=== PATIENT | female | born 1975 | race Caucasian/White ===

== ENCOUNTER 2016-06-16 11:53 | Emergency (ER) | payer MEDICAID, OTHER, SELFPAY ==
[2016-06-16] MEDS ORDERED: IBUPROFEN 600 MG TAB As Ordered ONE (13:07)
[2016-06-16] MEDS ORDERED: PROMETHAZINE INJ 25 MG/ML VIAL (J2550) As Ordered ONE (13:07)
--- NOTE | 2016-06-16 13:46 | REP ---
CHEST X-RAY: Two views. HISTORY: Shortness of breath. Comparison chest x-ray February 25, 2016. Comparison chest CT study is from May 18 2016. FINDINGS: There is mild biapical pleuroparenchymal stranding or scarring as before. The lungs are otherwise well inflated and clear. Pleural angles are sharp. Heart is not enlarged. Pulmonary vasculature is not increased. There is a mild levoconvex curvature in the thoracic spine. IMPRESSION: No active disease. Signed by Abhishek Ndiaye MD 06/16/2016 02:25 P
--- NOTE | 2016-06-16 14:05 | REP ---
Right upper quadrant sonography: History: Biliary colic. Comparison study: Comparison CT images from chest CT study dated May 18, 2016 done at [facility]. Findings: Scanning through the right upper quadrant of the abdomen demonstrates a normal sized, thin-walled gallbladder without evidence of stone or polyp. Common bile duct is normal measuring 0.2 cm in greatest diameter. No focal liver lesion is seen. Liver size is normal. No pancreatic abnormality is observed. No right renal abnormality is seen. There is no evidence of ascites. The right kidney measures 12.0 x 5.0 x 3.7 cm. Impression: Negative right upper quadrant sonography. Signed by Abhishek Ndiaye MD 06/16/2016 01:56 P
[2016-06-16 14:42] LABS: BASO % 0.1 % (0.0-1.0); EOS % 0.4 % (0.0-3.0); LARGE UNSTAINED CELL # 0.1 K/mm3 (0.0-0.4); LARGE UNSTAINED CELL % 0.5 % (0.0-4.0); LYMPH # 1.2 K/mm3 (1.5-4.5); LYMPH % 13.2 % (24.0-44.0); MEAN CORPUSCULAR HGB CONC 34.1 g/dl (32.0-36.5); MEAN CORPUSCULAR VOLUME 88.1 fl (80.0-96.0); MONO # 0.2 K/mm3 (0.0-0.8); MONO % 2.7 % (0.0-5.0); NEUTROPHILS # 7.3 K/mm3 (1.8-7.7); NEUTROPHILS % 83.1 % (36.0-66.0); PLATELET COUNT, AUTOMATED 195 k/mm3 (150-450); WHITE BLOOD COUNT 8.8 K/mm3 (4.0-10.0)
[2016-06-16 15:04] LABS: ALBUMIN 4.3 GM/DL (3.2-5.2); ALBUMIN/GLOBULIN RATIO 1.16 (1.00-1.93); ALKALINE PHOSPHATASE 62 U/L (45-117); ALT/SGPT 15 U/L (12-78); ANION GAP 11 MEQ/L (8-16); AST/SGOT 9 U/L (15-37); BILIRUBIN,DIRECT 0.1 MG/DL (0.0-0.2); BILIRUBIN,TOTAL 0.6 MG/DL (0.2-1.0); BLOOD UREA NITROGEN 18 MG/DL (7-18); CALCIUM LEVEL 9.3 MG/DL (8.5-10.1); CARBON DIOXIDE LEVEL 24 MEQ/L (21-32); CHLORIDE LEVEL 105 MEQ/L (98-107); CREATININE FOR GFR 0.64 MG/DL (0.55-1.02); GLOMERULAR FILTRATION RATE > 60.0 (>58); GLUCOSE, FASTING 129 MG/DL (70-105); POTASSIUM SERUM 3.3 MEQ/L (3.5-5.1); SODIUM LEVEL 140 MEQ/L (136-145)
--- NOTE | 2016-06-16 16:50 | EDDOCDS ---
Nurse's Notes [facility] Name: Rose Kuo Age: 40 yrs Sex: Female : 1975 Arrival Date: 06/16/2016 Time: 11:53 Bed 9 Private MD: Jacky Wills Diagnosis: Upper abdominal pain, unspecified;Nausea and vomiting Presentation: 06/16 12:05 Presenting complaint: Patient states: chest pain a couple of weeks on and off, non stop [facility] vomiting started last night about 8pm. Feeling low appetite and nausea for a few weeks, losing weight for past year and a half, get pain across upper abdomen toward right side after I eat. Adult Sepsis Screening: The patient does not have new or worsening altered mentation. Patient's respiratory rate is less than 22. Systolic blood pressure is greater than 100. Patient has a qSOFA score of 0- Negative Sepsis Screen. Suicide/Homicide risk assessment- the patient denies having any suicidal and/or homicidal ideations and does not present with any other emotional, behavioral or mental health complaints. Status: Patient is not a business services representative or dependent. Transition of care: patient was not received from another setting of care. Care prior to arrival: See EMS report. Medications administered prior to arrival: Zofran Saline lock initiated. 12:05 Acuity: NEHA Level 3 [facility] 12:05 Method Of Arrival: Ambulance [facility] Triage Assessment: 12:12 General: Appears in no apparent distress, ill, Behavior is flat. Pain: Location: right [facility] upper quadrant and left upper quadrant Pain currently is 3 out of 10 on a pain scale. HIV screening NA for this visit Offered previously. Neurological: Level of Consciousness is awake, alert, Oriented to person, place, time. Respiratory: Airway is patent Respiratory effort is even, unlabored, Respiratory pattern is regular, symmetrical. GI: Reports vomiting. Derm: Skin is pink, warm & dry. 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 Depakote 500 mg Oral TbEC 2 tabs nightly 2. Tylenol 500 mg Oral 2 tabs as needed (Last dose: 06/15/2016) 3. Botox Injections every three months (Last dose: 05/14/2016) - PMHx: Migraine Headaches; Anxiety; Depression; Lung nodules, eval due November 2016; - PSHx: Hysterectomy; EGD; Colonoscopy; Left Breast biopsy; - Social history: Smoking status: Patient uses tobacco products, heavy tobacco smoker. No barriers to communication noted. - Family history: Not pertinent. - : The pt / caregiver states he / she is not on anticoagulants. Home medication list is obtained from the patient. - Exposure Risk Screening:: None identified. Screenin:30 Screening information is obtained from the patient. Fall risk: No risks identified. [facility] Assistance ADL's: requires no assistance with activities of daily living. Abuse/DV Screen: The patient / caregiver reports he/she is: not in a situation that causes fear, pain or injury. Nutritional screening: No deficits noted. Advance Directives: There is no active DNR order. home support is adequate. Assessment: 00:30 General: Appears ill, Behavior is fussy. Pain: Location: abdomen Pain currently is 5 cjh out of 10 on a pain scale. Neurological: Level of Consciousness is awake, alert, Oriented to person, place, time. Cardiovascular: Rhythm is sinus arrythmia. Respiratory: Airway is patent Respiratory effort is even, unlabored, Respiratory pattern is regular, symmetrical. GI: Bowel sounds diminished in right upper quadrant, left upper quadrant, right lower quadrant and left lower quadrant Abd is soft X 4 quads Abd is tender to palpation in right upper quadrant Reports vomiting. GI: Abdomen is non- distended. 13:10 General: transported to [facility] via tech, then ultrasound. [facility] 14:25 General: returned from US, reports nausea, no further vomiting. Lab draws completed and [facility] medications administered, at bedside. 15:41 General: resting quietly, appears comfortable, at bedside. [facility] 16:48 General: Appears in no apparent distress, comfortable, Behavior is cooperative. ead Neurological: Level of Consciousness is awake, alert, Oriented to person, place, time. Derm: Skin is pink, warm & dry. Vital Signs: 12:04 BP 145 / 65; Pulse 60; Resp 18; Temp 100.1(TE); Pulse Ox 100% ; cmb 12:16 Weight 51.71 kg (R); Height 5 ft. 4 in. (162.56 cm); Pain 4/10; cmb 16:01 BP 93 / 51; Pulse 69; Resp 18; Pulse Ox 99% ; Pain 3/10; cmb 16:04 Temp 98.1(O); cmb 16:32 BP 133 / 73 (auto/); ead 16:32 Pulse 76 MON; ead 16:44 Pulse 76 MON; Resp 14; Pulse Ox 98% ; Pain 0/10; ead 12:16 Body Mass Index 19.57 (51.71 kg, 162.56 cm) cmb Vitals: 12:04 Log In Time N/A - ambulance arrival. cmb ED Course: 00:30 The patient / caregiver is instructed regarding the plan of care and ED course. cjh 00:30 Maintain field IV. Good blood return noted. Site clean & dry. Gauge & site: 18, right cj AC. 11:54 Patient visited by Lorri Hernandez, Grinder Dresser. lbd 11:54 Patient moved to Waiting lbd 11:55 Jacky Wills is Private Physician. lbd 11:55 Patient moved to 9 lbd 12:05 Patient visited by Helen Lagos. cmb 12:07 Triage Initiated [facility] 12:16 Patient visited by Helen Lagos. cmb 12:16 Pt greeted and oriented to ED. Patient advised of names of staff involved in care, cmb location of call alexandre, wait times and NPO status. Accompanied by Family Member, Patient has correct armband on for positive identification. Placed in gown. Bed in low position. Call light in reach. Side rails up X2. impregnator helper on. Pulse ox on. NIBP on. 12:16 EKG done. (by ED staff). Reviewed by Darrin Turner MD. cmb 12:48 Zenon Gresham MD is Attending Physician. br1 12:57 Patient visited by Zenon Gresham MD. br1 14:03 Patient visited by Helen Lagos. cmb 14:18 Chest, 2 View (pa\E\lat) Returned. EDMS 14:18 Ultrasound Abd Limited Returned. EDMS 14:28 -Influenza A&B Rapid Antigen - Nose Sent. cjh 14:28 Troponin Sent. cjh 14:29 CBC with Diff Sent. cjh 14:39 VALPROIC ACID (DEPAKOTE) Sent. cjh 14:39 BASIC METABOLIC PROFILE Sent. cjh 14:39 LIVER PROFILE Sent. cjh 14:39 LIPASE Sent. cjh 14:41 Patient visited by Consuelo Goddard RN. cj 15:52 Patient visited by Consuelo Goddard RN. [facility] 15:54 Patient visited by Zenon Gresham MD. br1 16:02 Patient visited by Helen Lagos. cmb 16:03 [facility] Payment Agreement was scanned into [employer] and attached to record. zo 16:04 Patient visited by Helen Lagos. cmb 16:24 Patient visited by Zenon Gresham MD. br1 16:25 Jacky Wills is Referral Physician. br1 16:27 Patient visited by Helen Lagos. cmb 16:48 Discontinued IV intact, bleeding controlled, pressure dressing applied, No ead redness/swelling at site. No procedures done that require assistance. Administered Medications: 14:28 Drug: Ibuprofen 600 mg [ibuprofen 600 mg tablet (1 tabs)] Route: PO; [facility] 14:28 Drug: NS 0.9% 1000 ml Route: IV; Rate: bolus; Site: left antecubital; [facility] 14:28 Drug: Promethazine 25 mg [promethazine 25 mg/mL injection solution (1 mL)] Route: IVP; [facility] Site: left antecubital; Order Results: Lab Order: CBC with Diff; SPEC'M 06/16/16 14:26 Test: WHITE BLOOD COUNT; Value: 8.8; Range: 4.0-10.0; Units: K/mm3; Status: F Test: RED BLOOD COUNT; Value: 4.69; Range: 4.00-5.40; Units: M/mm3; Status: F Test: HEMOGLOBIN; Value: 14.1; Range: 12.0-16.0; Units: g/dl; Status: F Test: HEMATOCRIT; Value: 41.3; Range: 36.0-47.0; Units: %; Status: F Test: MEAN CORPUSCULAR VOLUME; Value: 88.1; Range: 80.0-96.0; Units: fl; Status: F Test: MEAN CORPUSCULAR HEMOGLOBIN; Value: 30.0; Range: 27.0-33.0; Units: pg; Status: F Test: MEAN CORPUSCULAR HGB CONC; Value: 34.1; Range: 32.0-36.5; Units: g/dl; Status: F Test: RED CELL DISTRIBUTION WIDTH; Value: 12.0; Range: 11.5-14.5; Units: %; Status: F Test: PLATELET COUNT, AUTOMATED; Value: 195; Range: 150-450; Units: k/mm3; Status: F Test: NEUTROPHILS %; Value: 83.1; Range: 36.0-66.0; Abnormal: Above high normal; Units: %; Status: F Test: LYMPH %; Value: 13.2; Range: 24.0-44.0; Abnormal: Below low normal; Units: %; Status: F Test: MONO %; Value: 2.7; Range: 0.0-5.0; Units: %; Status: F Test: EOS %; Value: 0.4; Range: 0.0-3.0; Units: %; Status: F Test: BASO %; Value: 0.1; Range: 0.0-1.0; Units: %; Status: F Test: LARGE UNSTAINED CELL %; Value: 0.5; Range: 0.0-4.0; Units: %; Status: F Test: NEUTROPHILS #; Value: 7.3; Range: 1.8-7.7; Units: K/mm3; Status: F Test: LYMPH #; Value: 1.2; Range: 1.5-4.5; Abnormal: Below low normal; Units: K/mm3; Status: F Test: MONO #; Value: 0.2; Range: 0.0-0.8; Units: K/mm3; Status: F Test: EOS #; Value: 0.0; Range: 0.0-0.50; Units: K/mm3; Status: F Test: BASO #; Value: 0.0; Range: 0.0-0.2; Units: K/mm3; Status: F Test: LARGE UNSTAINED CELL #; Value: 0.1; Range: 0.0-0.4; Units: K/mm3; Status: F Lab Order: Troponin; SPEC'M 06/16/16 14:26 Test: TROPONIN I; Value: < 0.02; Range: < 0.10; Units: NG/ML; Status: F Test Note: ; Troponin I Reference Interval for [facility] LOCI: 99th Percentile= 0.00-0.045 ng/ml Risk Stratification: <= 0.10 ng/ml Decreased Risk for Adverse Clinical Events. 0.10-1.50 ng/ml Increased Risk for Adverse Clinical Events. Evaluation of additional criterion and/or repeat testing in 2-6 hours is suggested to rule out myocardial damage. >= 1.50 ng/ml Indicative of Myocardial Injury. Lab Order: -Influenza A&B Rapid Antigen - Nose; SPEC'M 06/16/16 14:26 Test: INFLUENZA A RAPID SCR by ICA; Value: INFLUENZA A RESULTS NEGATIVE; Status: F Test: INFLUENZA A RAPID SCR by ICA; Value: Comments:; Status: F Test: INFLUENZA B RAPID SCR by ICA; Value: INFLUENZA B RESULTS NEGATIVE; Status: F Test Note: ; The Influenza test is a direct rapid immunoassay for the qualitative detection of Influenza viral antigen. Cell culture (Viral Culture) testing should be considered to confirm NEGATIVE results and to assist in detecting other viruses that can provide similar clinical symptoms. Please contact the lab within 24 hours [phone]) if confirmatory testing is desired. Lab Order: LIPASE; SPEC'M 06/16/16 14:26 Test: LIPASE; Value: 66; Range: 73-393; Abnormal: Below low normal; Units: U/L; Status: F Lab Order: LIVER PROFILE; SPEC'M 06/16/16 14:26 Test: AST/SGOT; Value: 9; Range: 15-37; Abnormal: Below low normal; Units: U/L; Status: F Test: ALT/SGPT; Value: 15; Range: 12-78; Units: U/L; Status: F Test: ALKALINE PHOSPHATASE; Value: 62; Range: 45-117; Units: U/L; Status: F Test: BILIRUBIN,TOTAL; Value: 0.6; Range: 0.2-1.0; Units: MG/DL; Status: F Test: BILIRUBIN,DIRECT; Value: 0.1; Range: 0.0-0.2; Units: MG/DL; Status: F Test: TOTAL PROTEIN; Value: 8.0; Range: 6.4-8.2; Units: GM/DL; Status: F Test: ALBUMIN; Value: 4.3; Range: 3.2-5.2; Units: GM/DL; Status: F Test: ALBUMIN/GLOBULIN RATIO; Value: 1.16; Range: 1.00-1.93; Status: F Lab Order: BASIC METABOLIC PROFILE; SPEC'06/16/16 14:26 Test: GLUCOSE, FASTING; Value: 129; Range: 70-105; Abnormal: Above high normal; Units: MG/DL; Status: F Test: BLOOD UREA NITROGEN; Value: 18; Range: 7-18; Units: MG/DL; Status: F Test: CREATININE FOR GFR; Value: 0.64; Range: 0.55-1.02; Units: MG/DL; Status: F Test: GLOMERULAR FILTRATION RATE; Value: > 60.0; Range: >58; Status: F Test: SODIUM LEVEL; Value: 140; Range: 136-145; Units: MEQ/L; Status: F Test: POTASSIUM SERUM; Value: 3.3; Range: 3.5-5.1; Abnormal: Below low normal; Units: MEQ/L; Status: F Test: CHLORIDE LEVEL; Value: 105; Range: 98-107; Units: MEQ/L; Status: F Test: CARBON DIOXIDE LEVEL; Value: 24; Range: 21-32; Units: MEQ/L; Status: F Test: ANION GAP; Value: 11; Range: 8-16; Units: MEQ/L; Status: F Test: CALCIUM LEVEL; Value: 9.3; Range: 8.5-10.1; Units: MG/DL; Status: F Test Note: ; Units are mL/min/1.73 m2 Chronic Kidney Disease Staging per NKF: Stage I & II GFR >=60 Normal to Mildly Decreased Stage III GFR 30-59 Moderately Decreased Stage IV GFR 15-29 Severely Decreased Stage V GFR <15 Very Little GFR Left ESRD GFR <15 on LOADING AND UNLOADING SUPERVISOR Lab Order: VALPROIC ACID (DEPAKOTE); SPEC'M 06/16/16 14:26 Test: VALPROIC ACID (DEPAKOTE); Value: 65.7; Range: 50.0-100.0; Units: UG/ML; Status: F Radiology Order: Chest, 2 View (pa\E\lat) Test: Chest, 2 View (pa\E\lat) REASON FOR EXAMINATION: Shortness of Breath; CHEST X-RAY: Two views.; ; HISTORY: Shortness of breath.; ; Comparison chest x-ray February 25, 2016. Comparison chest CT study is from; May 18 2016.; ; FINDINGS: There is mild biapical pleuroparenchymal stranding or scarring as; before. The lungs are otherwise well inflated and clear. Pleural angles are; sharp. Heart is not enlarged. Pulmonary vasculature is not increased. There is; a mild levoconvex curvature in the thoracic spine.; ; IMPRESSION: No active disease.; ; ; Signed by; Abhishek Ndiaye MD 06/16/2016 02:25 P; Radiology Order: Ultrasound Abd Limited Test: Ultrasound Abd Limited REASON FOR EXAMINATION: Biliary Colic; Right upper quadrant sonography:; ; History: Biliary colic.; ; Comparison study: Comparison CT images from chest CT study dated May 18, 2016; done at [facility].; ; Findings: Scanning through the right upper quadrant of the abdomen demonstrates a; normal sized, thin-walled gallbladder without evidence of stone or polyp. Common; bile duct is normal measuring 0.2 cm in greatest diameter. No focal liver lesion; is seen. Liver size is normal. No pancreatic abnormality is observed. No right; renal abnormality is seen. There is no evidence of ascites. The right kidney; measures 12.0 x 5.0 x 3.7 cm.; ; Impression:; ; Negative right upper quadrant sonography.; ; ; Signed by; Abhishek Ndiaye MD 06/16/2016 01:56 P; Outcome: 00:30 Ultrasound Study completed. [facility] 16:27 Discharge ordered by Provider. br1 16:49 Discharge Assessment: Patient awake and alert. obeys commands, Oriented to person, ead place and time. patient administered narcotics - no. The following High Risk Discharge criteria are identified: None. Discharged to home ambulatory, with significant other. Condition: improved. Discharge instructions given to patient, significant other, Instructed on discharge instructions, follow up and referral plans. medication usage, no driving heavy equipment, no drinking with medication, Demonstrated understanding of instructions, medications, Pt was receptive of discharge instructions/ teaching. Prescriptions given X 1. Property sent home with patient. 16:49 Patient left the ED. ead Signatures: Dispatcher [employer] EDMS Lorri Hernandez, Grinder Dresser Unit lbd Jaswant Mansfield Brian, MD MD br1 Consuelo Goddard RN RN [facility] Helen Lagos Emily,RN RN ead Corrections: (The following items were deleted from the chart) 14:28 VALPROIC ACID (DEPAKOTE)+LAB sent. [facility] EDMS 14:28 LIPASE+LAB sent. [facility] EDMS 14:28 LIVER PROFILE+LAB sent. [facility] EDMS 14:28 BASIC METABOLIC PROFILE+LAB sent. [facility] EDMS MTDD
--- NOTE | 2016-06-16 16:50 | EDDOCDS ---
Physician Documentation [facility] Name: Rose Kuo Age: 40 yrs Sex: Female : 1975 Arrival Date: 06/16/2016 Time: 11:53 Bed 9 Private MD: Jacky Wills Disposition: 06/16/16 16:27 Discharged to Home/Self Care. Impression: Upper abdominal pain, unspecified, Nausea and vomiting. - Condition is Stable. - Discharge Instructions: Abdominal Pain, Adult, Nausea and Vomiting. - Prescriptions for promethazine 25 mg Oral Tablet - take 1 tablet by ORAL route every 6 hours As needed; 12 tablet. - Medication Reconciliation, Local Pharmacy Hours form. - Follow up: Jacky Wills; When: 1 - 2 days; Reason: Recheck today's complaints. - Problem is new. - Symptoms have improved. - Notes: You were seen in the ED for upper abdominal pain and nausea and vomiting. Bloodwork along with EKG of the heart, chest Xray and ultrasound of the gallbladder showed no acute findings. You were treated and improved with medication and IV fluids. As you are feeling better you may return home to follow up with your doctor - please call today to arrange to be seen. Take Phenergan as needed, encourage clear liquids, and then advance your diet as tolerated. Return to the ED for any worsening pain, fever, inability to tolerate oral foods or liquids, chest pain, trouble breathing or any other concerns. Historical: - Allergies: Reglan; - Home Meds: 1. Depakote 500 mg Oral TbEC 2 tabs nightly 2. Tylenol 500 mg Oral 2 tabs as needed (Last dose: 06/15/2016) 3. Botox Injections every three months (Last dose: 05/14/2016) - PMHx: Migraine Headaches; Anxiety; Depression; Lung nodules, eval due November 2016; - PSHx: Hysterectomy; EGD; Colonoscopy; Left Breast biopsy; - Social history: Smoking status: Patient uses tobacco products, heavy tobacco smoker. No barriers to communication noted. - Family history: Not pertinent. - : The pt / caregiver states he / she is not on anticoagulants. Home medication list is obtained from the patient. - Exposure Risk Screening:: None identified. 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 4 in. (162.56 cm); Pain 4/10; cmb 16:01 BP 93 / 51; Pulse 69; Resp 18; Pulse Ox 99% ; Pain 3/10; cmb 16:04 Temp 98.1(O); cmb 16:32 BP 133 / 73 (auto/); ead 16:32 Pulse 76 MON; ead 16:44 Pulse 76 MON; Resp 14; Pulse Ox 98% ; Pain 0/10; ead 12:16 Body Mass Index 19.57 (51.71 kg, 162.56 cm) cmb MDM: 12:06 ECG WITH READING ER PHYS+CARDIAG ordered. EDMS 12:58 IV Saline Lock ordered. br1 12:58 Ibuprofen 600 mg PO once ordered. br1 12:58 NS 0.9% 1000 ml IV at bolus once ordered. br1 12:58 Promethazine 25 mg IVP once; dilute and administer 30-60 minutes ordered. br1 12:59 Escalator Constructor/Pulse Ox/q 30 min VS ordered. br1 12:59 CBC with Diff Ordered. EDMS 12:59 Troponin Ordered. EDMS 13:00 Ultrasound Abd Limited Ordered. EDMS 13:00 Chest, 2 View (pa\E\lat) Ordered. EDMS 13:01 -Influenza A&B Rapid Antigen - Nose Ordered. EDMS 14:34 LIPASE Ordered. EDMS 14:34 LIVER PROFILE Ordered. EDMS 14:34 BASIC METABOLIC PROFILE Ordered. EDMS 14:34 VALPROIC ACID (DEPAKOTE) Ordered. EDMS 15:45 CBC with Diff Reviewed. br1 15:45 LIPASE Reviewed. br1 15:45 LIVER PROFILE Reviewed. br1 15:45 BASIC METABOLIC PROFILE Reviewed. br1 15:45 Troponin Reviewed. br1 15:45 -Influenza A&B Rapid Antigen - Nose Reviewed. br1 15:45 VALPROIC ACID (DEPAKOTE) Reviewed. br1 15:45 Chest, 2 View (pa\E\lat) Reviewed. br1 15:45 Ultrasound Abd Limited Reviewed. br1 15:46 Fluid Challenge ordered. br1 15:56 Financial registration complete. zo 16:03 [facility] Payment Agreement was scanned into [employer] and attached to record. zo Administered Medications: 14:28 Drug: Ibuprofen 600 mg [ibuprofen 600 mg tablet (1 tabs)] Route: PO; [facility] 14:28 Drug: NS 0.9% 1000 ml Route: IV; Rate: bolus; Site: left antecubital; [facility] 14:28 Drug: Promethazine 25 mg [promethazine 25 mg/mL injection solution (1 mL)] Route: IVP; [facility] Site: left antecubital; Signatures: Dispatcher [employer] EDMS Jaswant Mansfield Brian, MD MD br1 Consuelo Goddard RN RN [facility] Francine Hawkins RN RN renatad The chart was reviewed and I authenticate all verbal orders and agree with the evaluation and treatment provided.Corrections: (The following items were deleted from the chart) 14:34 12:59 BASIC METABOLIC PROFILE+LAB ordered. EDMS EDMS 14:34 12:59 LIVER PROFILE+LAB ordered. EDMS EDMS 14:34 12:59 LIPASE+LAB ordered. EDMS EDMS 14:34 12:59 VALPROIC ACID (DEPAKOTE)+LAB ordered. EDMS EDMS Attachments: 16:03 [facility] Payment Agreement zo MTDD
--- NOTE | 2016-06-18 08:55 | ECGEPIP ---
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
--- NOTE | 2016-06-18 17:50 | EDDOCDS ---
Nurse's Notes [facility] Name: Rose Hernández Age: 40 yrs Sex: Female : 1975 Arrival Date: 06/16/2016 Time: 11:53 Bed 9 Private MD: Jacky Wills Diagnosis: Upper abdominal pain, unspecified;Nausea and vomiting Presentation: 06/16 12:05 Presenting complaint: Patient states: chest pain a couple of weeks on and off, non stop [facility] vomiting started last night about 8pm. Feeling low appetite and nausea for a few weeks, losing weight for past year and a half, get pain across upper abdomen toward right side after I eat. Adult Sepsis Screening: The patient does not have new or worsening altered mentation. Patient's respiratory rate is less than 22. Systolic blood pressure is greater than 100. Patient has a qSOFA score of 0- Negative Sepsis Screen. Suicide/Homicide risk assessment- the patient denies having any suicidal and/or homicidal ideations and does not present with any other emotional, behavioral or mental health complaints. 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 Transition of care: patient was not received from another setting of care. Care prior to arrival: See EMS report. Medications administered prior to arrival: Zofran Saline lock initiated. 12:05 Acuity: NEHA Level 3 [facility] 12:05 Method Of Arrival: Ambulance [facility] Triage Assessment: 12:12 General: Appears in no apparent distress, ill, Behavior is flat. Pain: Location: right [facility] upper quadrant and left upper quadrant Pain currently is 3 out of 10 on a pain scale. HIV screening NA for this visit Offered previously. Neurological: Level of Consciousness is awake, alert, Oriented to person, place, time. Respiratory: Airway is patent Respiratory effort is even, unlabored, Respiratory pattern is regular, symmetrical. GI: Reports vomiting. Derm: Skin is pink, warm & dry. 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 Depakote 500 mg Oral TbEC 2 tabs nightly 2. Tylenol 500 mg Oral 2 tabs as needed (Last dose: 06/15/2016) 3. Botox Injections every three months (Last dose: 05/14/2016) - PMHx: Migraine Headaches; Anxiety; Depression; Lung nodules, eval due November 2016; - PSHx: Hysterectomy; EGD; Colonoscopy; Left Breast biopsy; - Social history: Smoking status: Patient uses tobacco products, heavy tobacco smoker. No barriers to communication noted. - Family history: Not pertinent. - : The pt / caregiver states he / she is not on anticoagulants. Home medication list is obtained from the patient. - Exposure Risk Screening:: None identified. Screenin:30 Screening information is obtained from the patient. Fall risk: No risks identified. [facility] Assistance ADL's: requires no assistance with activities of daily living. Abuse/DV Screen: The patient / caregiver reports he/she is: not in a situation that causes fear, pain or injury. Nutritional screening: No deficits noted. Advance Directives: There is no active DNR order. home support is adequate. Assessment: 00:30 General: Appears ill, Behavior is fussy. Pain: Location: abdomen Pain currently is 5 cjh out of 10 on a pain scale. Neurological: Level of Consciousness is awake, alert, Oriented to person, place, time. Cardiovascular: Rhythm is sinus arrythmia. Respiratory: Airway is patent Respiratory effort is even, unlabored, Respiratory pattern is regular, symmetrical. GI: Bowel sounds diminished in right upper quadrant, left upper quadrant, right lower quadrant and left lower quadrant Abd is soft X 4 quads Abd is tender to palpation in right upper quadrant Reports vomiting. GI: Abdomen is non- distended. 13:10 General: transported to [facility] via tech, then ultrasound. [facility] 14:25 General: returned from US, reports nausea, no further vomiting. Lab draws completed and [facility] medications administered, at bedside. 15:41 General: resting quietly, appears comfortable, at bedside. [facility] 16:48 General: Appears in no apparent distress, comfortable, Behavior is cooperative. ead Neurological: Level of Consciousness is awake, alert, Oriented to person, place, time. Derm: Skin is pink, warm & dry. Vital Signs: 12:04 BP 145 / 65; Pulse 60; Resp 18; Temp 100.1(TE); Pulse Ox 100% ; cmb 12:16 Weight 51.71 kg (R); Height 5 ft. 4 in. (162.56 cm); Pain 4/10; cmb 16:01 BP 93 / 51; Pulse 69; Resp 18; Pulse Ox 99% ; Pain 3/10; cmb 16:04 Temp 98.1(O); cmb 16:32 BP 133 / 73 (auto/); ead 16:32 Pulse 76 MON; ead 16:44 Pulse 76 MON; Resp 14; Pulse Ox 98% ; Pain 0/10; ead 12:16 Body Mass Index 19.57 (51.71 kg, 162.56 cm) cmb Vitals: 12:04 Log In Time N/A - ambulance arrival. cmb ED Course: 00:30 The patient / caregiver is instructed regarding the plan of care and ED course. cjh 00:30 Maintain field IV. Good blood return noted. Site clean & dry. Gauge & site: 18, right cj AC. 11:54 Patient visited by Lorri Hernandez, Flatlock Sewing Machine Operator. lbd 11:54 Patient moved to Waiting lbd 11:55 Jacky Wills is Private Physician. lbd 11:55 Patient moved to 9 lbd 12:05 Patient visited by Helen Lagos. cmb 12:07 Triage Initiated [facility] 12:16 Patient visited by Helen Lagos. cmb 12:16 Pt greeted and oriented to ED. Patient advised of names of staff involved in care, cmb location of call alexandre, wait times and NPO status. Accompanied by Family Member, Patient has correct armband on for positive identification. Placed in gown. Bed in low position. Call light in reach. Side rails up X2. title coordinator on. Pulse ox on. NIBP on. 12:16 EKG done. (by ED staff). Reviewed by Darrin Turner MD. cmb 12:48 Zenon Gresham MD is Attending Physician. br1 12:57 Patient visited by Zenon Gresham MD. br1 14:03 Patient visited by Helen Lagos. cmb 14:18 Chest, 2 View (pa\E\lat) Returned. EDMS 14:18 Ultrasound Abd Limited Returned. EDMS 14:28 -Influenza A&B Rapid Antigen - Nose Sent. cjh 14:28 Troponin Sent. cjh 14:29 CBC with Diff Sent. cjh 14:39 VALPROIC ACID (DEPAKOTE) Sent. cjh 14:39 BASIC METABOLIC PROFILE Sent. cjh 14:39 LIVER PROFILE Sent. cjh 14:39 LIPASE Sent. cjh 14:41 Patient visited by Consuelo Goddard RN. cj 15:52 Patient visited by Consuelo Goddard RN. cj 15:54 Patient visited by Zenon Gresham MD. br1 16:02 Patient visited by Helen Lagos. cmb 16:03 [facility] Payment Agreement was scanned into [employer] and attached to record. zo 16:04 Patient visited by Helen Lagos. cmb 16:24 Patient visited by Zenon Gresham MD. br1 16:25 Johann Jacky is Referral Physician. br1 16:27 Patient visited by Helen Lagos. cmb 16:48 Discontinued IV intact, bleeding controlled, pressure dressing applied, No ead redness/swelling at site. No procedures done that require assistance. 06/17 10:45 T-Sheet-- Draft Copy was scanned into [employer] and attached to record. gb 10:45 ECG/EKG was scanned into [employer] and attached to record. gb 10:45 Rhythm Strip was scanned into [employer] and attached to record. gb 10:45 Radiology Report was scanned into [employer] and attached to record. gb 10:46 PCR was scanned into [employer] and attached to record. 06/18 09:17 EKG-ADULT Returned. EDMS Administered Medications: 06/16 14:28 Drug: Ibuprofen 600 mg [ibuprofen 600 mg tablet (1 tabs)] Route: PO; [facility] 14:28 Drug: NS 0.9% 1000 ml Route: IV; Rate: bolus; Site: left antecubital; [facility] 14:28 Drug: Promethazine 25 mg [promethazine 25 mg/mL injection solution (1 mL)] Route: IVP; [facility] Site: left antecubital; Attachments: 10:45 Rhythm Strip gb Order Results: Lab Order: CBC with Diff; SPEC'M 06/16/16 14:26 Test: WHITE BLOOD COUNT; Value: 8.8; Range: 4.0-10.0; Units: K/mm3; Status: F Test: RED BLOOD COUNT; Value: 4.69; Range: 4.00-5.40; Units: M/mm3; Status: F Test: HEMOGLOBIN; Value: 14.1; Range: 12.0-16.0; Units: g/dl; Status: F Test: HEMATOCRIT; Value: 41.3; Range: 36.0-47.0; Units: %; Status: F Test: MEAN CORPUSCULAR VOLUME; Value: 88.1; Range: 80.0-96.0; Units: fl; Status: F Test: MEAN CORPUSCULAR HEMOGLOBIN; Value: 30.0; Range: 27.0-33.0; Units: pg; Status: F Test: MEAN CORPUSCULAR HGB CONC; Value: 34.1; Range: 32.0-36.5; Units: g/dl; Status: F Test: RED CELL DISTRIBUTION WIDTH; Value: 12.0; Range: 11.5-14.5; Units: %; Status: F Test: PLATELET COUNT, AUTOMATED; Value: 195; Range: 150-450; Units: k/mm3; Status: F Test: NEUTROPHILS %; Value: 83.1; Range: 36.0-66.0; Abnormal: Above high normal; Units: %; Status: F Test: LYMPH %; Value: 13.2; Range: 24.0-44.0; Abnormal: Below low normal; Units: %; Status: F Test: MONO %; Value: 2.7; Range: 0.0-5.0; Units: %; Status: F Test: EOS %; Value: 0.4; Range: 0.0-3.0; Units: %; Status: F Test: BASO %; Value: 0.1; Range: 0.0-1.0; Units: %; Status: F Test: LARGE UNSTAINED CELL %; Value: 0.5; Range: 0.0-4.0; Units: %; Status: F Test: NEUTROPHILS #; Value: 7.3; Range: 1.8-7.7; Units: K/mm3; Status: F Test: LYMPH #; Value: 1.2; Range: 1.5-4.5; Abnormal: Below low normal; Units: K/mm3; Status: F Test: MONO #; Value: 0.2; Range: 0.0-0.8; Units: K/mm3; Status: F Test: EOS #; Value: 0.0; Range: 0.0-0.50; Units: K/mm3; Status: F Test: BASO #; Value: 0.0; Range: 0.0-0.2; Units: K/mm3; Status: F Test: LARGE UNSTAINED CELL #; Value: 0.1; Range: 0.0-0.4; Units: K/mm3; Status: F Lab Order: Troponin; SPEC'M 06/16/16 14:26 Test: TROPONIN I; Value: < 0.02; Range: < 0.10; Units: NG/ML; Status: F Test Note: ; Troponin I Reference Interval for Siem[employer] [place] LOCI: 99th Percentile= 0.00-0.045 ng/ml Risk Stratification: <= 0.10 ng/ml Decreased Risk for Adverse Clinical Events. 0.10-1.50 ng/ml Increased Risk for Adverse Clinical Events. Evaluation of additional criterion and/or repeat testing in 2-6 hours is suggested to rule out myocardial damage. >= 1.50 ng/ml Indicative of Myocardial Injury. Lab Order: -Influenza A&B Rapid Antigen - Nose; SPEC'M 06/16/16 14:26 Test: INFLUENZA A RAPID SCR by ICA; Value: INFLUENZA A RESULTS NEGATIVE; Status: F Test: INFLUENZA A RAPID SCR by ICA; Value: Comments:; Status: F Test: INFLUENZA B RAPID SCR by ICA; Value: INFLUENZA B RESULTS NEGATIVE; Status: F Test Note: ; The Influenza test is a direct rapid immunoassay for the qualitative detection of Influenza viral antigen. Cell culture (Viral Culture) testing should be considered to confirm NEGATIVE results and to assist in detecting other viruses that can provide similar clinical symptoms. Please contact the lab within 24 hours ([phone]) if confirmatory testing is desired. Lab Order: LIPASE; SPEC'M 06/16/16 14:26 Test: LIPASE; Value: 66; Range: 73-393; Abnormal: Below low normal; Units: U/L; Status: F Lab Order: LIVER PROFILE; SPEC'M 06/16/16 14:26 Test: AST/SGOT; Value: 9; Range: 15-37; Abnormal: Below low normal; Units: U/L; Status: F Test: ALT/SGPT; Value: 15; Range: 12-78; Units: U/L; Status: F Test: ALKALINE PHOSPHATASE; Value: 62; Range: 45-117; Units: U/L; Status: F Test: BILIRUBIN,TOTAL; Value: 0.6; Range: 0.2-1.0; Units: MG/DL; Status: F Test: BILIRUBIN,DIRECT; Value: 0.1; Range: 0.0-0.2; Units: MG/DL; Status: F Test: TOTAL PROTEIN; Value: 8.0; Range: 6.4-8.2; Units: GM/DL; Status: F Test: ALBUMIN; Value: 4.3; Range: 3.2-5.2; Units: GM/DL; Status: F Test: ALBUMIN/GLOBULIN RATIO; Value: 1.16; Range: 1.00-1.93; Status: F Lab Order: BASIC METABOLIC PROFILE; [facility] 06/16/16 14:26 Test: GLUCOSE, FASTING; Value: 129; Range: 70-105; Abnormal: Above high normal; Units: MG/DL; Status: F Test: BLOOD UREA NITROGEN; Value: 18; Range: 7-18; Units: MG/DL; Status: F Test: CREATININE FOR GFR; Value: 0.64; Range: 0.55-1.02; Units: MG/DL; Status: F Test: GLOMERULAR FILTRATION RATE; Value: > 60.0; Range: >58; Status: F Test: SODIUM LEVEL; Value: 140; Range: 136-145; Units: MEQ/L; Status: F Test: POTASSIUM SERUM; Value: 3.3; Range: 3.5-5.1; Abnormal: Below low normal; Units: MEQ/L; Status: F Test: CHLORIDE LEVEL; Value: 105; Range: 98-107; Units: MEQ/L; Status: F Test: CARBON DIOXIDE LEVEL; Value: 24; Range: 21-32; Units: MEQ/L; Status: F Test: ANION GAP; Value: 11; Range: 8-16; Units: MEQ/L; Status: F Test: CALCIUM LEVEL; Value: 9.3; Range: 8.5-10.1; Units: MG/DL; Status: F Test Note: ; Units are mL/min/1.73 m2 Chronic Kidney Disease Staging per NKF: Stage I & II GFR >=60 Normal to Mildly Decreased Stage III GFR 30-59 Moderately Decreased Stage IV GFR 15-29 Severely Decreased Stage V GFR <15 Very Little GFR Left ESRD GFR <15 on 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 Lab Order: VALPROIC ACID (DEPAKOTE); SPEC'M 06/16/16 14:26 Test: VALPROIC ACID (DEPAKOTE); Value: 65.7; Range: 50.0-100.0; Units: UG/ML; Status: F Radiology Order: EKG-ADULT Test: EKG-ADULT REASON FOR EXAMINATION: Chest Pain; Stationary ECG Study; [facility] - ED; ; Test Date: 2016-06-16; Pat Name: ROSE HERNÁNDEZ Department:; Room: -; Gender: F 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 Pumper: patty; : 1975 Requested By: Darrin Borden; Order Number: [id number] Reading MD: Ruby Ridley; Measurements; Intervals Indian; Rate: 63 P: 58; MD: 151 QRS: 64; QRSD: 96 T: 49; QT: 454; QTc: 466; Interpretive Statements; SINUS RHYTHM WITH MARKED SINUS ARRHYTHMIA; NSTTW ABNORMALITY; NO PRIOR FOR COMPARISON; Electronically Signed On 06-18-2016 8:54:52 EST by Ruby Ridley; Radiology Order: Chest, 2 View (pa\E\lat) Test: Chest, 2 View (pa\E\lat) REASON FOR EXAMINATION: Shortness of Breath; CHEST X-RAY: Two views.; ; HISTORY: Shortness of breath.; ; Comparison chest x-ray February 25, 2016. Comparison chest CT study is from; May 18 2016.; ; FINDINGS: There is mild biapical pleuroparenchymal stranding or scarring as; before. The lungs are otherwise well inflated and clear. Pleural angles are; sharp. Heart is not enlarged. Pulmonary vasculature is not increased. There is; a mild levoconvex curvature in the thoracic spine.; ; IMPRESSION: No active disease.; ; ; Signed by; Abhishek Ndiaye MD 06/16/2016 02:25 P; Radiology Order: Ultrasound Abd Limited Test: Ultrasound Abd Limited REASON FOR EXAMINATION: Biliary Colic; Right upper quadrant sonography:; ; History: Biliary colic.; ; Comparison study: Comparison CT images from chest CT study dated May 18, 2016; done at [facility].; ; Findings: Scanning through the right upper quadrant of the abdomen demonstrates a; normal sized, thin-walled gallbladder without evidence of stone or polyp. Common; bile duct is normal measuring 0.2 cm in greatest diameter. No focal liver lesion; is seen. Liver size is normal. No pancreatic abnormality is observed. No right; renal abnormality is seen. There is no evidence of ascites. The right kidney; measures 12.0 x 5.0 x 3.7 cm.; ; Impression:; ; Negative right upper quadrant sonography.; ; ; Signed by; Abhishek Ndiaye MD 06/16/2016 01:56 P; Outcome: 06/16 00:30 Ultrasound Study completed. [facility] 16:27 Discharge ordered by Provider. br1 16:49 Discharge Assessment: Patient awake and alert. obeys commands, Oriented to person, ead place and time. patient administered narcotics - no. The following High Risk Discharge criteria are identified: None. Discharged to home ambulatory, with significant other. Condition: improved. Discharge instructions given to patient, significant other, Instructed on discharge instructions, follow up and referral plans. medication usage, no driving heavy equipment, no drinking with medication, Demonstrated understanding of instructions, medications, Pt was receptive of discharge instructions/ teaching. Prescriptions given X 1. Property sent home with patient. 16:49 Patient left the ED. ead Signatures: Dispatcher [employer] EDMS Lorri Hernandez, Flatlock Sewing Machine Operator Unit lbd Tri Soto, Jaden Reg Jaswant Lopez Brian, MD MD br1 Consuelo Goddard RN RN [facility] Helen Lagos EmilyRN RN ead Corrections: (The following items were deleted from the chart) 14:34 14:28 VALPROIC ACID (DEPAKOTE)+LAB sent. [facility] EDND 14:34 14:28 LIPASE+LAB sent. [facility] EDND 14:34 14:28 LIVER PROFILE+LAB sent. [facility] EDND 14:34 14:28 BASIC METABOLIC PROFILE+LAB sent. [facility] Chart Complete MTDD
--- NOTE | 2016-06-18 17:50 | EDDOCDS ---
Physician Documentation [facility] Name: Rose Kuo Age: 40 yrs Sex: Female : 1975 Arrival Date: 06/16/2016 Time: 11:53 Bed 9 Private MD: Jacky Wills Disposition: 06/16/16 16:27 Discharged to Home/Self Care. Impression: Upper abdominal pain, unspecified, Nausea and vomiting. - Condition is Stable. - Discharge Instructions: Abdominal Pain, Adult, Nausea and Vomiting. - Prescriptions for promethazine 25 mg Oral Tablet - take 1 tablet by ORAL route every 6 hours As needed; 12 tablet. - Medication Reconciliation, Local Pharmacy Hours form. - Follow up: Jacky Wills; When: 1 - 2 days; Reason: Recheck today's complaints. - Problem is new. - Symptoms have improved. - Notes: You were seen in the ED for upper abdominal pain and nausea and vomiting. Bloodwork along with EKG of the heart, chest Xray and ultrasound of the gallbladder showed no acute findings. You were treated and improved with medication and IV fluids. As you are feeling better you may return home to follow up with your doctor - please call today to arrange to be seen. Take Phenergan as needed, encourage clear liquids, and then advance your diet as tolerated. Return to the ED for any worsening pain, fever, inability to tolerate oral foods or liquids, chest pain, trouble breathing or any other concerns. Historical: - Allergies: Reglan; - Home Meds: 1. Depakote 500 mg Oral TbEC 2 tabs nightly 2. Tylenol 500 mg Oral 2 tabs as needed (Last dose: 06/15/2016) 3. Botox Injections every three months (Last dose: 05/14/2016) - PMHx: Migraine Headaches; Anxiety; Depression; Lung nodules, eval due November 2016; - PSHx: Hysterectomy; EGD; Colonoscopy; Left Breast biopsy; - Social history: Smoking status: Patient uses tobacco products, heavy tobacco smoker. No barriers to communication noted. - Family history: Not pertinent. - : The pt / caregiver states he / she is not on anticoagulants. Home medication list is obtained from the patient. - Exposure Risk Screening:: None identified. ACCOUNTANT: 06/16 12:12 LMP N/A - Hysterectomy [facility] Vital Signs: 12:04 BP 145 / 65; Pulse 60; Resp 18; Temp 100.1(TE); Pulse Ox 100% ; cmb 12:16 Weight 51.71 kg / 114 lbs (R); Height 5 ft. 4 in. (162.56 cm); Pain 4/10; cmb 16:01 BP 93 / 51; Pulse 69; Resp 18; Pulse Ox 99% ; Pain 3/10; cmb 16:04 Temp 98.1(O); cmb 16:32 BP 133 / 73 (auto/); ead 16:32 Pulse 76 MON; ead 16:44 Pulse 76 MON; Resp 14; Pulse Ox 98% ; Pain 0/10; ead 12:16 Body Mass Index 19.57 (51.71 kg, 162.56 cm) cmb MDM: 12:06 ECG WITH READING ER PHYS+CARDIAG ordered. EDMS 12:58 IV Saline Lock ordered. br1 12:58 Ibuprofen 600 mg PO once ordered. br1 12:58 NS 0.9% 1000 ml IV at bolus once ordered. br1 12:58 Promethazine 25 mg IVP once; dilute and administer 30-60 minutes ordered. br1 12:59 Team Lead/Pulse Ox/q 30 min VS ordered. br1 12:59 CBC with Diff Ordered. EDMS 12:59 Troponin Ordered. EDMS 13:00 Ultrasound Abd Limited Ordered. EDMS 13:00 Chest, 2 View (pa\E\lat) Ordered. EDMS 13:01 -Influenza A&B Rapid Antigen - Nose Ordered. EDMS 14:34 LIPASE Ordered. EDMS 14:34 LIVER PROFILE Ordered. EDMS 14:34 BASIC METABOLIC PROFILE Ordered. EDMS 14:34 VALPROIC ACID (DEPAKOTE) Ordered. EDMS 15:45 CBC with Diff Reviewed. br1 15:45 LIPASE Reviewed. br1 15:45 LIVER PROFILE Reviewed. br1 15:45 BASIC METABOLIC PROFILE Reviewed. br1 15:45 Troponin Reviewed. br1 15:45 -Influenza A&B Rapid Antigen - Nose Reviewed. br1 15:45 VALPROIC ACID (DEPAKOTE) Reviewed. br1 15:45 Chest, 2 View (pa\E\lat) Reviewed. br1 15:45 Ultrasound Abd Limited Reviewed. br1 15:46 Fluid Challenge ordered. br1 15:56 Financial registration complete. zo 16:03 [facility] Payment Agreement was scanned into [employer] and attached to record. zo 06/17 10:45 T-Sheet-- Draft Copy was scanned into [employer] and attached to record. gb 10:45 ECG/EKG was scanned into [employer] and attached to record. gb 10:45 Rhythm Strip was scanned into [employer] and attached to record. gb 10:45 Radiology Report was scanned into [employer] and attached to record. gb 10:46 PCR was scanned into [employer] and attached to record. gb Administered Medications: 06/16 14:28 Drug: Ibuprofen 600 mg [ibuprofen 600 mg tablet (1 tabs)] Route: PO; [facility] 14: Drug: NS 0.9% 1000 ml Route: IV; Rate: bolus; Site: left antecubital; [facility] 14:28 Drug: Promethazine 25 mg [promethazine 25 mg/mL injection solution (1 mL)] Route: IVP; [facility] Site: left antecubital; Signatures: Dispatcher [employer] EDMS Tri Soto, Reg Reg Jaswant Mansfield Brian, MD MD br1 Consuelo Goddard RN RN [facility] Francine Hawkins RN RN ead The chart was reviewed and I authenticate all verbal orders and agree with the evaluation and treatment provided.Corrections: (The following items were deleted from the chart) 14:34 12:59 BASIC METABOLIC PROFILE+LAB ordered. EDMS EDMS 14:34 12:59 LIVER PROFILE+LAB ordered. EDMS EDMS 14:34 12:59 LIPASE+LAB ordered. EDMS EDMS 14:34 12:59 VALPROIC ACID (DEPAKOTE)+LAB ordered. EDMS EDMS Attachments: 16:03 [facility] Payment Agreement zo 06/17 10:45 T-Sheet-- Draft Copy gb 10:45 ECG/EKG gb Chart Complete MTDD
--- NOTE | 2016-06-18 17:50 | EDDOCDS ---
Physician Documentation [facility] Name: Rose Kuo Age: 40 yrs Sex: Female : 1975 Arrival Date: 06/16/2016 Time: 11:53 Bed 9 Private MD: Jacky Wills Disposition: 06/16/16 16:27 Discharged to Home/Self Care. Impression: Upper abdominal pain, unspecified, Nausea and vomiting. - Condition is Stable. - Discharge Instructions: Abdominal Pain, Adult, Nausea and Vomiting. - Prescriptions for promethazine 25 mg Oral Tablet - take 1 tablet by ORAL route every 6 hours As needed; 12 tablet. - Medication Reconciliation, Local Pharmacy Hours form. - Follow up: Jacky Wills; When: 1 - 2 days; Reason: Recheck today's complaints. - Problem is new. - Symptoms have improved. - Notes: You were seen in the ED for upper abdominal pain and nausea and vomiting. Bloodwork along with EKG of the heart, chest Xray and ultrasound of the gallbladder showed no acute findings. You were treated and improved with medication and IV fluids. As you are feeling better you may return home to follow up with your doctor - please call today to arrange to be seen. Take Phenergan as needed, encourage clear liquids, and then advance your diet as tolerated. Return to the ED for any worsening pain, fever, inability to tolerate oral foods or liquids, chest pain, trouble breathing or any other concerns. Historical: - Allergies: Reglan; - Home Meds: 1. Depakote 500 mg Oral TbEC 2 tabs nightly 2. Tylenol 500 mg Oral 2 tabs as needed (Last dose: 06/15/2016) 3. Botox Injections every three months (Last dose: 05/14/2016) - PMHx: Migraine Headaches; Anxiety; Depression; Lung nodules, eval due November 2016; - PSHx: Hysterectomy; EGD; Colonoscopy; Left Breast biopsy; - Social history: Smoking status: Patient uses tobacco products, heavy tobacco smoker. No barriers to communication noted. - Family history: Not pertinent. - : The pt / caregiver states he / she is not on anticoagulants. Home medication list is obtained from the patient. - Exposure Risk Screening:: None identified. [employer]: 06/16 12:12 LMP N/A - Hysterectomy [facility] Vital Signs: 12:04 BP 145 / 65; Pulse 60; Resp 18; Temp 100.1(TE); Pulse Ox 100% ; cmb 12:16 Weight 51.71 kg / 114 lbs (R); Height 5 ft. 4 in. (162.56 cm); Pain 4/10; cmb 16:01 BP 93 / 51; Pulse 69; Resp 18; Pulse Ox 99% ; Pain 3/10; cmb 16:04 Temp 98.1(O); cmb 16:32 BP 133 / 73 (auto/); ead 16:32 Pulse 76 MON; ead 16:44 Pulse 76 MON; Resp 14; Pulse Ox 98% ; Pain 0/10; ead 12:16 Body Mass Index 19.57 (51.71 kg, 162.56 cm) cmb MDM: 12:06 ECG WITH READING ER PHYS+CARDIAG ordered. EDMS 12:58 IV Saline Lock ordered. br1 12:58 Ibuprofen 600 mg PO once ordered. br1 12:58 NS 0.9% 1000 ml IV at bolus once ordered. br1 12:58 Promethazine 25 mg IVP once; dilute and administer 30-60 minutes ordered. br1 12:59 Special Education Teaching Assistant/Pulse Ox/q 30 min VS ordered. br1 12:59 CBC with Diff Ordered. EDMS 12:59 Troponin Ordered. EDMS 13:00 Ultrasound Abd Limited Ordered. EDMS 13:00 Chest, 2 View (pa\E\lat) Ordered. EDMS 13:01 -Influenza A&B Rapid Antigen - Nose Ordered. EDMS 14:34 LIPASE Ordered. EDMS 14:34 LIVER PROFILE Ordered. EDMS 14:34 BASIC METABOLIC PROFILE Ordered. EDMS 14:34 VALPROIC ACID (DEPAKOTE) Ordered. EDMS 15:45 CBC with Diff Reviewed. br1 15:45 LIPASE Reviewed. br1 15:45 LIVER PROFILE Reviewed. br1 15:45 BASIC METABOLIC PROFILE Reviewed. br1 15:45 Troponin Reviewed. br1 15:45 -Influenza A&B Rapid Antigen - Nose Reviewed. br1 15:45 VALPROIC ACID (DEPAKOTE) Reviewed. br1 15:45 Chest, 2 View (pa\E\lat) Reviewed. br1 15:45 Ultrasound Abd Limited Reviewed. br1 15:46 Fluid Challenge ordered. br1 15:56 Financial registration complete. zo 16:03 [facility] Payment Agreement was scanned into [employer] and attached to record. zo 06/17 10:45 T-Sheet-- Draft Copy was scanned into [employer] and attached to record. gb 10:45 ECG/EKG was scanned into [employer] and attached to record. gb 10:45 Rhythm Strip was scanned into [employer] and attached to record. gb 10:45 Radiology Report was scanned into [employer] and attached to record. gb 10:46 PCR was scanned into [employer] and attached to record. gb Administered Medications: 06/16 14:28 Drug: Ibuprofen 600 mg [ibuprofen 600 mg tablet (1 tabs)] Route: PO; [facility] 14: Drug: NS 0.9% 1000 ml Route: IV; Rate: bolus; Site: left antecubital; [facility] 14:28 Drug: Promethazine 25 mg [promethazine 25 mg/mL injection solution (1 mL)] Route: IVP; [facility] Site: left antecubital; Signatures: Dispatcher [employer] EDMS Tri Soto, Reg Reg Jaswant Mansfield Brian, MD MD br1 Consuelo Goddard RN RN [facility] Francine Hawkins RN RN ead The chart was reviewed and I authenticate all verbal orders and agree with the evaluation and treatment provided.Corrections: (The following items were deleted from the chart) 14:34 12:59 BASIC METABOLIC PROFILE+LAB ordered. EDMS EDMS 14:34 12:59 LIVER PROFILE+LAB ordered. EDMS EDMS 14:34 12:59 LIPASE+LAB ordered. EDMS EDMS 14:34 12:59 VALPROIC ACID (DEPAKOTE)+LAB ordered. EDMS EDMS Attachments: 16:03 [facility] Payment Agreement zo 06/17 10:45 T-Sheet-- Draft Copy gb 10:45 ECG/EKG gb Chart Complete MTDD
== END 2016-06-16 16:49 | disposition home or self-care (01) ==
LOC: M ED 11:53
DX: R10.10 Upper abdominal pain, unspecified (principal); R11.2 Nausea with vomiting, unspecified; G43.909 Migraine, unspecified, not intractable, without status migrainosus; F41.9 Anxiety disorder, unspecified; F32.9 Major depressive disorder, single episode, unspecified; R91.8 Other nonspecific abnormal finding of lung field; F17.210 Nicotine dependence, cigarettes, uncomplicated; Z79.899 Other long term (current) drug therapy; Z88.8 Allergy status to other drugs, medicaments and biological substances

== ENCOUNTER → 2017-02-10 | Outpatient (REF) | payer OTHER ==
[2017-02-10 20:02] LABS: BASO # 0.1 10^3/uL (0.0-0.2); BASO % 0.7 % (0.0-1.0); EOS # 0.1 10^3/uL (0.0-0.50); EOS % 1.2 % (0.0-3.0); IMMATURE GRANULOCYTE % 0.1 % (0-0); LYMPH # 3.5 10^3/uL (1.5-4.5); LYMPH % 41.6 % (24.0-44.0); MEAN CORPUSCULAR HEMOGLOBIN 30.6 pg (27.0-33.0); MEAN CORPUSCULAR HGB CONC 32.8 g/dl (32.0-36.5); MEAN CORPUSCULAR VOLUME 93.4 fl (80.0-96.0); MONO # 0.4 10^3/uL (0.0-0.8); MONO % 5.2 % (0.0-5.0); NEUTROPHILS # 4.3 10^3/uL (1.8-7.7); NEUTROPHILS % 51.2 % (36.0-66.0); PLATELET COUNT, AUTOMATED 206 10^3/uL (150-450); RED CELL DISTRIBUTION WIDTH 12.6 % (11.5-14.5); WHITE BLOOD COUNT 8.5 10^3/uL (4.0-10.0)
[2017-02-10 20:09] LABS: ADD MORPHOLOGY? NO
[2017-02-10 20:12] LABS: ALBUMIN 4.5 GM/DL (3.2-5.2); ALBUMIN/GLOBULIN RATIO 1.36 (1.00-1.93); ALKALINE PHOSPHATASE 78 U/L (45-117); ALT/SGPT 28 U/L (12-78); ANION GAP 6 MEQ/L (8-16); AST/SGOT 17 U/L (15-37); BILIRUBIN,TOTAL 0.5 MG/DL (0.2-1.0); BLOOD UREA NITROGEN 16 MG/DL (7-18); CALCIUM LEVEL 9.9 MG/DL (8.5-10.1); CARBON DIOXIDE LEVEL 31 MEQ/L (21-32); CHLORIDE LEVEL 104 MEQ/L (98-107); CREATININE FOR GFR 0.63 MG/DL (0.55-1.02); GLOMERULAR FILTRATION RATE > 60.0 (>58); GLUCOSE, FASTING 98 MG/DL (70-105); POTASSIUM SERUM 4.3 MEQ/L (3.5-5.1); SODIUM LEVEL 141 MEQ/L (136-145); TOTAL PROTEIN 7.8 GM/DL (6.4-8.2)
== END ==
LOC: M LABNEURO 19:00
PROVIDERS: ATTEND Psychiatry & Neurology Neurology
DX: R42 Dizziness and giddiness (principal)

== ENCOUNTER → 2018-09-13 | Outpatient (REF) | payer OTHER ==
[2018-09-13 14:15] LABS: ALBUMIN 4.4 GM/DL (3.2-5.2); ALT/SGPT 15 U/L (12-78); BILIRUBIN,TOTAL 0.5 MG/DL (0.2-1.0); BLOOD UREA NITROGEN 16 MG/DL (7-18); CALCIUM LEVEL 9.1 MG/DL (8.5-10.1); CARBON DIOXIDE LEVEL 30 MEQ/L (21-32); CHLORIDE LEVEL 105 MEQ/L (98-107); CREATININE FOR GFR 0.64 MG/DL (0.55-1.30); GLOMERULAR FILTRATION RATE > 60.0 (>58); GLUCOSE, FASTING 99 MG/DL (70-100); POTASSIUM SERUM 3.9 MEQ/L (3.5-5.1); SODIUM LEVEL 140 MEQ/L (136-145); TOTAL PROTEIN 7.1 GM/DL (6.4-8.2); VALPROIC ACID (DEPAKOTE) 18.7 UG/ML (50.0-100.0)
[2018-09-13 14:54] LABS: BASO # 0.1 10^3/uL (0.0-0.2); BASO % 0.8 % (0.0-1.0); EOS # 0.1 10^3/uL (0.0-0.50); EOS % 0.8 % (0.0-3.0); HEMATOCRIT 40.9 % (36.0-47.0); HEMOGLOBIN 13.6 g/dl (12.0-15.5); LYMPH % 40.2 % (24.0-44.0); MEAN CORPUSCULAR HGB CONC 33.3 g/dl (32.0-36.5); MEAN CORPUSCULAR VOLUME 90.3 fl (80.0-96.0); MONO # 0.6 10^3/uL (0.0-0.8); MONO % 7.4 % (0.0-5.0); NEUTROPHILS # 3.8 10^3/uL (1.8-7.7); NEUTROPHILS % 50.5 % (36.0-66.0); PLATELET COUNT, AUTOMATED 185 10^3/uL (150-450); RED BLOOD COUNT 4.53 10^6/uL (4.00-5.40); WHITE BLOOD COUNT 7.4 10^3/uL (4.0-10.0)
== END ==
LOC: M LABNEURO 08:45
PROVIDERS: ATTEND Psychiatry & Neurology Neurology
DX: G43.909 Migraine, unspecified, not intractable, without status migrainosus (principal)

== ENCOUNTER → 2018-12-27 | Outpatient (CLI) | payer OTHER ==
--- NOTE | 2018-12-27 16:15 | REP ---
Diagnostic bilateral mammography with CAD, 3-D tomography, and focused left breast sonography: History: Lump found in the left breast between 10 o'clock and 2 o'clock. Comparison is made with prior mammography from [facility] dated 11/13/2013. Mammographic findings: Breast parenchyma is heterogeneously dense in a nodular pattern bilaterally. This may inhibit the sensitivity of mammography. No dominant density is seen in the superior aspect of the left breast or elsewhere on either side. No microcalcification or architectural distortion is seen. No worrisome skin changes appreciated. The mammographic pattern is unchanged bilaterally. No suspicious mammographic findings. 3-D tomography imaging shows no additional abnormality. Sonographic findings: Focused left breast sonography is performed from 10 o'clock to 2 o'clock throughout the superior aspect. There is a 6 mm cyst 2.8 cm from the nipple at 11 o'clock. At 2 o'clock there is an elongate cystic structure 10 x 8 x 2 mm consistent with a slightly dilated duct. No sonographically suspicious finding. Impression: BIRADS category II benign findings. This negative report should not dissuade one from biopsy of a palpable lump depending on its clinical characteristics. Clinical follow-up is advised. BIRADS 2: BI-RADS/ACR category 2 mammogram. Benign Findings. This mammogram was interpreted with the aid of an FDA-approved computer-aided detection system. The patient states she had a clinical breast exam in December of 2018 The patient letter being requested is m2. Electronically Signed by Abhishek Ndiaye MD 12/27/2018 09:06 P
== END ==
LOC: M RAD 11:16
PROVIDERS: ATTEND Family Medicine
DX: N63.20 Unspecified lump in the left breast, unspecified quadrant (principal)
CPT/HCPCS: 76642; 77066; G0279

== ENCOUNTER → 2019-11-04 | Outpatient (CLI) | payer OTHER | LOC: M LABSMTC 09:30 | PROVIDERS: ATTEND Physical Medicine & Rehabilitation | DX: Z03.818 Encounter for observation for suspected exposure to other biological agents ruled out (principal) ==

== ENCOUNTER → 2019-11-18 | Outpatient (CLI) | payer OTHER | LOC: M LABSMTC 09:47 | PROVIDERS: ATTEND Orthopaedic Surgery | DX: Z03.818 Encounter for observation for suspected exposure to other biological agents ruled out (principal); Z11.59 Encounter for screening for other viral diseases ==

== ENCOUNTER → 2019-12-02 | Outpatient (CLI) | payer OTHER | LOC: M LABSMTC 10:18 | PROVIDERS: ATTEND Orthopaedic Surgery | DX: Z01.818 Encounter for other preprocedural examination (principal); Z11.59 Encounter for screening for other viral diseases; Z20.828 Contact with and (suspected) exposure to other viral communicable diseases ==

== ENCOUNTER 2021-04-07 04:01 | Emergency (ER) | payer OTHER ==
[~2021-04-07] VITALS: Ht 167.6 cm; Wt 52.2 kg
[2021-04-07] MEDS ORDERED: ATOR1TAB21 (04:17)
[2021-04-07] MEDS ORDERED: DIVA500T94 (04:17)
[2021-04-07] MEDS ORDERED: TIZA2TA (04:17)
[2021-04-07] MEDS ORDERED: NORT50CA (04:17)
[2021-04-07] MEDS ORDERED: HALOPERIDOL 5MG/ML VIAL (J1630 PER 1) IV ONE (04:50)
[2021-04-07 04:52] LABS: HEMATOCRIT 43.4 % (36.0-47.0); MEAN CORPUSCULAR HEMOGLOBIN 30.4 pg (27.0-33.0); MEAN CORPUSCULAR HGB CONC 34.6 g/dl (32.0-36.5); MEAN CORPUSCULAR VOLUME 87.9 fl (80.0-96.0); PLATELET COUNT, AUTOMATED 209 10^3/uL (150-450); RED BLOOD COUNT 4.94 10^6/uL (4.00-5.40); WHITE BLOOD COUNT 13.3 10^3/uL (4.0-10.0)
[2021-04-07 05:15] VITALS: BP 124/59
[2021-04-07 05:26] LABS: ALBUMIN 4.2 GM/DL (3.2-5.2); ALT/SGPT 15 U/L (12-78); BILIRUBIN,TOTAL 0.9 MG/DL (0.2-1.0); BLOOD UREA NITROGEN 13 MG/DL (7-18); CALCIUM LEVEL 10.3 MG/DL (8.5-10.1); CARBON DIOXIDE LEVEL 24 MEQ/L (21-32); CHLORIDE LEVEL 106 MEQ/L (98-107); CREATININE FOR GFR 0.71 MG/DL (0.55-1.30); GLOMERULAR FILTRATION RATE > 60.0 (>58); GLUCOSE, FASTING 156 MG/DL (70-100); LIPASE 72 U/L (73-393); POTASSIUM SERUM 3.8 MEQ/L (3.5-5.1); SODIUM LEVEL 139 MEQ/L (136-145); TOTAL PROTEIN 7.4 GM/DL (6.4-8.2)
[2021-04-07] MEDS ORDERED: GI COCKTAIL 50ML BTL(HYOSCYAMINE/MAALOX/LIDOCAINE VISCOUS)(1:3:1) PO ONE (06:25)
[2021-04-07] MEDS ORDERED: HYOSCYAMINE SULFATE 0.125 MG SUBL TABLET SL ONE (06:25)
[2021-04-07] MEDS ORDERED: NS 1,000 ML IV ONE (06:25)
[2021-04-07] MEDS ORDERED: ONDANSETRON 4MG/2ML VIAL IV ONE (06:30)
[2021-04-07] MEDS ORDERED: ISOVUE-370 76% 100ML VIAL As Ordered ONE (07:21)
[2021-04-07 07:45] LABS: CK-MB VALUE MASS 1.4 NG/ML (<3.6); CPK CREATINE PHOSPHOKINASE 86 U/L (26-192); MB/CK RELATIVE INDEX 1.63 (< OR =4); TROPONIN I < 0.02 NG/ML (< 0.10)
[2021-04-07] MEDS ORDERED: ZOFR4TAB16 PO (08:59)
== END 2021-04-07 15:26 | disposition home or self-care (01) ==
LOC: M ED 04:01 → EDBD 04:01 → M ED 15:26
DX: R10.9 Unspecified abdominal pain (principal); R11.10 Vomiting, unspecified; R00.1 Bradycardia, unspecified; F17.200 Nicotine dependence, unspecified, uncomplicated; K31.0 Acute dilatation of stomach; E78.5 Hyperlipidemia, unspecified; K21.9 Gastro-esophageal reflux disease without esophagitis; Z87.442 Personal history of urinary calculi; Z88.8 Allergy status to other drugs, medicaments and biological substances
CPT/HCPCS: 74177; 80053; 81001; 82550; 82553; 83690; 85027; 93005; 96361; 96374; 96375; 99284; J1630; J2405; Q9967

== ENCOUNTER → 2023-01-21 | Outpatient (CLI) | payer OTHER ==
[~2023-01-21] MED LIST: ATOR1TAB21; DIVA500T94; NORT50CA; TIZA2TA; ZOFR4TAB16 PO
== END ==
LOC: M RAD 17:00
PROVIDERS: ATTEND Family Medicine
DX: R91.1 Solitary pulmonary nodule (principal)

== ENCOUNTER → 2023-03-07 | Outpatient (CLI) | payer OTHER | LOC: M RAD 13:54 | PROVIDERS: ATTEND Internal Medicine Pulmonary Disease | DX: R06.02 Shortness of breath (principal) ==

== ENCOUNTER 2023-07-12 12:45 | Day surgery (SDC) | payer MEDICARE, MEDICAID ==
[~2023-07-12] VITALS: Ht 161.3 cm; Wt 46.7 kg
[~2023-07-12 12:45] MED LIST changes: -ATOR1TAB21; +ATOR1TAB21 PO; +MIRA3350 PO; +OMEP40CA5 PO
[2023-07-12] MEDS: NS 1,000 ML IV ONE (14:00)
[2023-07-12] MEDS ORDERED: fentaNYL 100 MCG/2 ML INJECTION As Ordered ONE (14:45)
[2023-07-12] MEDS ORDERED: LIDOCAINE 2% 100MG/5ML SDV (FOR ANES.) As Ordered ONE (14:46)
[2023-07-12] MEDS ORDERED: propofoL 200 MG/20 ML VIAL As Ordered ONE (14:46)
[2023-07-12 15:37] VITALS: BP 110/69; O2SAT 97
== END 2023-07-12 15:35 | disposition home or self-care (01) ==
LOC: M OPP 12:45
PROVIDERS: ATTEND Internal Medicine Gastroenterology
DX: R13.10 Dysphagia, unspecified (principal); K29.70 Gastritis, unspecified, without bleeding; R93.3 Abnormal findings on diagnostic imaging of other parts of digestive tract; K21.9 Gastro-esophageal reflux disease without esophagitis; K59.00 Constipation, unspecified; Z79.899 Other long term (current) drug therapy; E78.00 Pure hypercholesterolemia, unspecified; Z88.8 Allergy status to other drugs, medicaments and biological substances; F17.210 Nicotine dependence, cigarettes, uncomplicated; Z90.710 Acquired absence of both cervix and uterus
CPT/HCPCS: 43239; 88305; J3010

== ENCOUNTER → 2023-08-08 | Outpatient (CLI) | payer MEDICARE, MEDICAID | LOC: M RAD 08:54 | PROVIDERS: ATTEND Nurse Practitioner Family | DX: R10.11 Right upper quadrant pain (principal) ==

== ENCOUNTER → 2023-09-13 | Outpatient (CLI) | payer MEDICARE, MEDICAID ==
[~2023-09-13] MED LIST changes: +FAMO40TA3 PO
== END ==
LOC: M RAD 08:21
PROVIDERS: ATTEND Nurse Practitioner Family
DX: K82.8 Other specified diseases of gallbladder (principal)
CPT/HCPCS: 78227; A9537

== ENCOUNTER 2023-11-10 07:36 | Day surgery (SDC) | payer MEDICARE, MEDICAID ==
[~2023-11-10] VITALS: Ht 162.6 cm; Wt 42.9 kg
[~2023-11-10 07:36] MED LIST changes: +NS 1,000 ML IV ONE
[2023-11-10] MEDS ORDERED: LIDOCAINE 2% 100MG/5ML SDV (FOR ANES.) As Ordered ONE (08:14)
[2023-11-10] MEDS ORDERED: propofoL 200 MG/20 ML VIAL As Ordered ONE (08:14)
[2023-11-10] MEDS ORDERED: MIDAZOLAM INJ 2MG/2ML VIAL As Ordered ONE (09:20)
[2023-11-10 10:09] VITALS: BP 109/65; O2SAT 100
== END 2023-11-10 10:26 | disposition home or self-care (01) ==
LOC: M OPP 07:36
PROVIDERS: ATTEND Internal Medicine Gastroenterology
DX: Z12.11 Encounter for screening for malignant neoplasm of colon (principal); D12.2 Benign neoplasm of ascending colon; K63.5 Polyp of colon; K64.8 Other hemorrhoids; K57.30 Diverticulosis of large intestine without perforation or abscess without bleeding; F17.200 Nicotine dependence, unspecified, uncomplicated; Z79.899 Other long term (current) drug therapy; Z88.8 Allergy status to other drugs, medicaments and biological substances
CPT/HCPCS: 45385; 88305; J2250